=== PATIENT | female | born 1960 | race Caucasian/White ===

== ENCOUNTER → 2024-05-23 10:58 | Outpatient (REF) | payer OTHER, SELFPAY | LOC: HWWDC 10:58 | PROVIDERS: ATTENDING PHYSICIAN Family Medicine | DX: Z12.31 Encounter for screening mammogram for malignant neoplasm of breast (principal) | CPT/HCPCS: 77063; 77067 ==

== ENCOUNTER → 2025-06-16 14:11 | Outpatient (REF) | payer OTHER, SELFPAY | LOC: HWWDC 14:11 | PROVIDERS: ATTENDING PHYSICIAN Physician Assistant Medical | DX: Z12.31 Encounter for screening mammogram for malignant neoplasm of breast (principal) | CPT/HCPCS: 77063; 77067 ==